=== PATIENT | female | born 2000 | race Caucasian/White ===

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

== ENCOUNTER 2022-11-10 12:50 | Observation (INO) | payer OTHER ==
[2022-11-10] MEDS ORDERED: DIPHTH,PERTUSS(ACELL),TET 0.5 ML DISP.SYRIN IM ONE ×2 (13:25→14:08)
[2022-11-10] MEDS ORDERED: KETOROLAC TROMETHAMINE 15 MG/ML VIAL IVPUSH ONE (13:26)
[2022-11-10] MEDS ORDERED: AMPICILLIN NA/SULBACTAM NA 1.5 GM in SODIUM CHLORIDE 100 ML IVPB ONE (13:26)
[2022-11-10 14:16] LABS: BASO % 0.4 % (0-2.0); EOS % 0.4 % (0-4.5); HEMATOCRIT 38.5 % (32.4-45.2); HEMOGLOBIN 13.3 GM/dL (10.7-15.3); LYMPH % 18.4 % (8-40); MCH 31.5 pg (25.7-33.7); MCHC 34.5 g/dl (32.0-36.0); MEAN CELL VOLUME 91.2 fl (80-96); MEAN PLT VOLUME 7.7 fl (7.5-11.1); MONO % 7.3 % (3.8-10.2); NEUT % 73.5 % (42.8-82.8); PLATELET COUNT 255 10^3/uL (134-434); RBC 4.22 M/mm3 (3.60-5.2); RDW 12.6 % (11.6-15.6)
[2022-11-10 14:38] LABS: CALCIUM 9.3 mg/dL (8.5-10.1)
[2022-11-10 14:39] LABS: BLOOD UREA NITROGEN 8.8 mg/dL (7-18)
[2022-11-10 14:42] LABS: CREATININE 0.6 mg/dL (0.55-1.3)
[2022-11-10 14:55] LABS: ERYTHROCYTE SEDIMENTATION RATE 12 mm/hr (0-20)
[2022-11-10] MEDS ORDERED: ACETAMINOPHEN 325 MG TABLET (FP) PO PRN (15:12)
[2022-11-10 18:26] VITALS: BMI 3149.4
[2022-11-10] MEDS: AMPICILLIN NA/SULBACTAM NA 1.5 GM in SODIUM CHLORIDE 100 ML IVPB SCH (18:30)
[2022-11-11] MEDS: AMPICILLIN NA/SULBACTAM NA 1.5 GM in SODIUM CHLORIDE 100 ML IVPB SCH ×3 (01:07→17:35)
[2022-11-11 10:36] LABS: BASO % 0.6 % (0-2.0); EOS % 0.6 % (0-4.5); HEMATOCRIT 39.2 % (32.4-45.2); HEMOGLOBIN 13.2 GM/dL (10.7-15.3); LYMPH % 18.3 % (8-40); MCH 30.7 pg (25.7-33.7); MCHC 33.7 g/dl (32.0-36.0); MEAN PLT VOLUME 8.3 fl (7.5-11.1); MONO % 7.2 % (3.8-10.2); NEUT % 73.3 % (42.8-82.8); PLATELET COUNT 263 10^3/uL (134-434); RBC 4.31 M/mm3 (3.60-5.2); RDW 12.5 % (11.6-15.6)
[2022-11-11 10:58] LABS: CALCIUM 9.2 mg/dL (8.5-10.1)
[2022-11-11 11:02] LABS: CREATININE 0.7 mg/dL (0.55-1.3)
[2022-11-11 12:01] VITALS: RESP 18
[2022-11-12] MEDS ORDERED: AMPICILLIN NA/SULBACTAM NA 1.5 GM VIAL ONE (01:25)
[2022-11-12] MEDS: AMPICILLIN NA/SULBACTAM NA 1.5 GM in SODIUM CHLORIDE 100 ML IVPB SCH ×2 (01:36→09:08)
[2022-11-12 10:59] LABS: BASO % 0.5 % (0-2.0); EOS % 1.1 % (0-4.5); HEMATOCRIT 39.5 % (32.4-45.2); HEMOGLOBIN 13.5 GM/dL (10.7-15.3); LYMPH % 33.2 % (8-40); MCHC 34.1 g/dl (32.0-36.0); MEAN CELL VOLUME 91.1 fl (80-96); MEAN PLT VOLUME 7.9 fl (7.5-11.1); MONO % 8.1 % (3.8-10.2); NEUT % 57.1 % (42.8-82.8); PLATELET COUNT 282 10^3/uL (134-434); RBC 4.34 M/mm3 (3.60-5.2); RDW 12.4 % (11.6-15.6); WHITE BLOOD COUNT 5.8 K/mm3 (4.0-10.0)
[2022-11-12 11:27] LABS: CALCIUM 9.2 mg/dL (8.5-10.1)
[2022-11-12 11:28] LABS: BLOOD UREA NITROGEN 8.6 mg/dL (7-18)
[2022-11-12 11:31] LABS: CREATININE 0.6 mg/dL (0.55-1.3)
[2022-11-12 13:11] VITALS: BP 101/64; PULSE 78; TEMP 98.5
== END 2022-11-12 14:15 | disposition home or self-care (01) ==
LOC: JER 12:50 → JERBED 14:58 → J6S 17:48
PROVIDERS: ADMIT Internal Medicine; ATTEND Internal Medicine
PROC: 3E03329 Introduction of Other Anti-infective into Peripheral Vein, Percutaneous Approach (ICD-10-PCS; principal; 2022-11-10)
PROC: 3E0234Z Introduction of Serum, Toxoid and Vaccine into Muscle, Percutaneous Approach (ICD-10-PCS; 2022-11-10)
PROC: 3E0333Z Introduction of Anti-inflammatory into Peripheral Vein, Percutaneous Approach (ICD-10-PCS; 2022-11-10)
DX: S61.451A Open bite of right hand, initial encounter (principal); M79.641 Pain in right hand; W54.0XXA Bitten by dog, initial encounter; Y93.89 Activity, other specified; Y92.008 Other place in unspecified non-institutional (private) residence as the place of occurrence of the external cause
CPT/HCPCS: 0241U-QW; 36415; 73130-TC-RT-FY; 80048; 85025; 85651; 86140; 90715; 99285-25; G0378